=== PATIENT | male | born 1940 | race Caucasian/White ===

== ENCOUNTER → 2017-03-31 | Outpatient (CLI) | payer MEDICARE, BC ==
[~2017-03-31] MED LIST: ALDACTONE25 MG PO; ASPIRIN EC81 MG PO; BIOTIN1000 MCG PO; CALCIUM 600 +1 EA12 PO; COD LIVER OIL1 EAC1 PO; COLACE100 MG PO; DULCOLAX10 MG R; FOLIC ACID0.8 MG PO; FOSAMAX70 MG PO; GLUCOSAMINE &1 EAC1 PO; LOPRESSOR25 MG PO; MILK OF MA400 MG/5 M PO; MUCINEX600 MG PO; PERCOCET 5-3251 EACH PO; PRILOSEC20 MG PO; SENOKOT S (S1 TABLET PO; TERAZOSIN HCL2 MG PO; VITAMIN C500 M1 PO
== END | disposition disaster alternative care site (69) ==
LOC: GRAD 09:25
DX: Z08 Encounter for follow-up examination after completed treatment for malignant neoplasm (principal); Z85.528 Personal history of other malignant neoplasm of kidney; I70.90 Unspecified atherosclerosis; N40.0 Benign prostatic hyperplasia without lower urinary tract symptoms; R91.8 Other nonspecific abnormal finding of lung field; R59.0 Localized enlarged lymph nodes; Z90.5 Acquired absence of kidney